=== PATIENT | female | born 1990 | race Caucasian/White ===

== ENCOUNTER 2020-01-10 13:11 | Outpatient (REF) | payer MEDICAID, SELFPAY | END 2020-01-10 13:12 | disposition home or self-care (01) | LOC: HO.LAB 13:11 | PROVIDERS: Visit Provider Internal Medicine | DX: Z20.828 Contact with and (suspected) exposure to other viral communicable diseases (principal) | CPT/HCPCS: C9803; U0003 ==

== ENCOUNTER 2020-04-27 17:31 | Emergency (ER) | payer MEDICAID, SELFPAY ==
[2020-04-27 17:51] VITALS: BP 103/71; PULSE 86; RESP 16; TEMP 36.8; O2SAT 97; BMI 28.3
--- NOTE | 2020-04-27 20:02 | ED_ITS ---
HPI - Abdominal Pain General Chief Complaint: Abdominal Pain Stated Complaint: abdominal pain Time Seen by Provider: 04/27/20 20:01 Source: patient Mode of arrival: ambulatory Limitations: no limitations History of Present Illness HPI narrative: Patient with chronic epigastric pain for more than 1 year has seen PCP plan to see government contracts manager comes here as pain is still there patient supposed to take Prilosec which she is not taking has nausea in the morning pain is burning sensation no vomiting or diarrhea no fever no chills also patient family son and boyfriend have cold symptoms for last few days MD elicited complaint: abdominal pain Pertinent past history: gastritis Onset (ago): month(s) Pain Consistency: intermittent Location: epigastric Severity: mild Quality: burning Radiation: epigastric Migration to: no migration Exacerbating factors: eating Relieving factors: nothing Associated symptoms: nausea Related Data Allergies Allergy/AdvReac Type Severity Reaction Status Date / Time dog dander [DOG] Allergy Intermediate SNEEZING Unverified 10/27/19 15:50 AND PUFFYNESS Review of Systems Review of Systems Yes all other systems are reviewed and are negative Physical Exam Vital Signs: Vital Signs: Last Vital Signs Temp 98.3 F 04/27/20 17:51 Pulse 85 04/27/20 20:33 Resp 18 04/27/20 20:33 BP 119/47 L 04/27/20 20:33 Pulse Ox 97 04/27/20 20:33 Body Mass Index 28.3 Appearance: Alert. Oriented X3. No acute distress. Eyes: Pupils equal, round and reactive to light. ENT: Pharynx normal. Neck: Normal inspection. Neck supple. CVS: Normal heart rate and rhythm. Pulses normal. Respiratory: No respiratory distress. Breath sounds normal. Abdomen: Soft , mild tenderness in the epigastric area, no rebound tenderness or guarding , Bowel sounds are present, no mass palpable, no CVA tenderness Skin: Skin warm and dry. Normal skin color. Normal skin turgor. Extremities: No lower extremity edema. Neuro: Oriented X 3. No motor deficit. No sensory deficit. MDM - Abdominal Pain MDM Narrative Medical decision making narrative: Patient with chronic gastritis came positive with COVID-19 as other family members also sick will discharge patient home on Prilosec sucralfate and supportive treatment for COVID-19 Lab Data Attestation: I reviewed the patient's lab results. Labs: Lab Results 04/27/20 Range/Units 20:38 COVID-19 (GUILLAUME) Positive A (Negative) COVID-19 Clin Com See Note PMFSH Past Medical History Medical History (Updated 04/27/20 @ 20:35 by Jan Renteria MD) Chronic gastritis Social History Social History Advance Directives: No Advance Directives Information Provided: No
[2020-04-27 20:33] VITALS: BP 119/47; PULSE 85; RESP 18; O2SAT 97
[2020-04-27] MEDS: Omeprazole 40 MG CAPSULE.DR PO (20:52)
[2020-04-27] MEDS: Magnesium Hydrox/Alum Hydrox 30 ML ORAL.SUSP PO (20:52)
[2020-04-27 21:17] LABS: COVID-19 Test Positive (Negative)
== END 2020-04-27 22:00 | disposition home or self-care (01) ==
PROVIDERS: Emergency Provider Internal Medicine; PCP Internal Medicine
DX: U07.1 COVID-19 (principal); K29.50 Unspecified chronic gastritis without bleeding; Z91.14 Patient's other noncompliance with medication regimen
CPT/HCPCS: 36415; 87635; 99283

== ENCOUNTER 2020-07-23 16:28 | Outpatient (REF) | payer MEDICAID, SELFPAY ==
[2020-07-23 16:53] LABS: MANUAL DIFF FLAG NO
[2020-07-23 17:00] LABS: Basophils Percent Auto 0.3 % (0-2); Eosinophils Absolute Auto 0.2 X10*3/uL (0.0-0.4); Eosinophils Percent Auto 1.8 % (0-4); Hematocrit 38.4 % (37-47); Hemoglobin 12.9 g/dl (12.0-16.0); Imm Gran Abs Auto 0.03 X10*3/uL (0.00-0.03); Imm Gran Pct Auto 0.3 % (0.0-0.4); Lymphocytes Absolute Auto 1.7 X10*3/uL (1.2-4.9); Lymphocytes Percent Auto 18.4 % (20-40); Mean Corpuscular HGB Conc 33.6 g/dl (31.0-35.0); Mean Corpuscular Hemoglobin 31.8 pg (27.0-33.0); Mean Corpuscular Volume 94.6 fL (80-98); Mean Platelet Volume 10.6 fL (9.4-12.3); Monocytes Absolute Auto 0.6 X10*3/uL (0.1-1.2); Monocytes Percent Auto 6.2 % (2-11); Neutrophils Absolute Auto 6.9 X10*3/uL (2.0-8.3); Platelet Count 207 X10*3/uL (160-400); Red Blood Count 4.06 X10*6/uL (4.20-5.50); Red Cell Distribution Width 12.2 % (11.0-16.0); White Blood Count 9.5 X10*3/uL (4.8-10.8)
[2020-07-23 17:25] LABS: Alanine Aminotransferase 17 U/L (0-31); Albumin Level 4.6 g/dL (3.5-5.0); Alkaline Phosphatase 57 U/L (39-117); Anion Gap 14 (12-20); Aspartate Amino Transferase 20 U/L (5-31); Blood Urea Nitrogen 13 mg/dL (9-16); Calcium 9.4 mg/dL (8.4-10.2); Carbon Dioxide 23 mmol/L (22-29); Chloride 106 mmol/L (96-108); Estimated Glomerular Filt Rate > 60; Glucose Random 87 mg/dL (60-115); Sodium 139 mmol/L (135-145)
[2020-07-23 17:46] LABS: TSH reflex Free T4 1.12 uIU/mL (0.32-4.0)
[2020-07-23 17:51] LABS: Vitamin B12 287 pg/mL (200-900)
[2020-07-25 23:42] LABS: Zinc 58 mcg/dL (60-130)
== END 2020-07-23 16:29 | disposition home or self-care (01) ==
LOC: HO.LAB 16:28
PROVIDERS: PCP Internal Medicine; Visit Provider Internal Medicine
DX: F22 Delusional disorders (principal); F43.0 Acute stress reaction; L65.0 Telogen effluvium; R21 Rash and other nonspecific skin eruption; R63.4 Abnormal weight loss
CPT/HCPCS: 36415; 80053; 82607; 84443; 84630; 85025

== ENCOUNTER 2020-08-02 11:14 | Outpatient (REF) | payer OTHER, SELFPAY ==
[2020-08-02 14:02] LABS: Glucose Urine UA NEG (NEG); Leukocyte Esterase Urine NEG (NEG); Nitrite Urine NEG (NEG); Specific Gravity - Urine 1.025 (1.005-1.025); Urine Blood NEG (NEG); Urine Ketones NEG (NEG); Urine Protein NEG (NEG-TRACE)
[2020-08-02 14:06] LABS: Appearance Urine CLEAR; Color Urine YELLOW
[2020-08-02 14:26] LABS: Monotest Negative (Negative)
[2020-08-02 14:41] LABS: Amylase 64 U/L (28-100); C Reactive Protein 0.08 mg/dL (< or = 0.50); Lipase 33 U/L (8-78)
[2020-08-03 07:48] LABS: Syphilis Screen Nonreactive (Nonreactive)
[2020-08-03 08:08] LABS: HBS Num1 15.54 mIU/mL (0-7.99); HIV AB/AG Nonreactive (Nonreactive); HIV Num 1 0.08 S/CO (0.00-0.99); ~Hepatitis B Surface Antibody REACTIVE (Nonreactive)
[2020-08-03 08:51] LABS: HBc Num1 0.08 S/CO (0.00-0.79); HBsAGNum1 0.22 S/CO (0.00-0.99); Hepatitis B Core Antibody Nonreactive (Nonreactive); Hepatitis B Surface Antigen Negative (Negative); ~HepC Num1 0.08 S/CO (0.00-0.79); ~Hepatitis C Antibody Nonreactive (Nonreactive)
[2020-08-03 09:06] LABS: Hepatitis A Antibody IgM 0.12 Index (0-0.79); ~Hepatitis A Antibody IgM Nonreactive (Nonreactive)
[2020-08-03 14:21] LABS: H Pylori Breath Test NOT DETECTED (NOT DETECTED)
== END 2020-08-02 11:15 | disposition home or self-care (01) ==
LOC: HO.LAB 11:14
PROVIDERS: Visit Provider Nurse Practitioner
DX: Z01.84 Encounter for antibody response examination (principal); Z11.4 Encounter for screening for human immunodeficiency virus [HIV]; Z11.59 Encounter for screening for other viral diseases; R10.13 Epigastric pain; K58.2 Mixed irritable bowel syndrome; R21 Rash and other nonspecific skin eruption; R63.4 Abnormal weight loss; R35.0 Frequency of micturition
CPT/HCPCS: 36415; 81003; 82150; 83013; 83690; 86140; 86308; 86704; 86706; 86709; 86780; 86803; 87340; 87389; 99202

== ENCOUNTER 2020-09-03 08:43 | Outpatient (REF) | payer OTHER, SELFPAY ==
--- NOTE | ~2020-09-03 | US_ITS ---
EXAMINATION: US ABDOMEN LIMITED CLINICAL INFORMATION: Abnormal weight loss. COMPARISON: Ultrasound abdomen 03/08/2019. CT abdomen pelvis 09/08/2011. TECHNIQUE: Real-time imaging of the right upper quadrant abdominal viscera. FINDINGS: PANCREAS: Normal. LIVER: The liver is normal in size. The liver contour is normal. The liver echotexture is slightly increased. No focal hepatic lesion. There is no intrahepatic biliary duct dilatation seen. GALLBLADDER: Normal The gallbladder is physiologically distended without evidence of stones, sludge, polyps, wall thickening or pericholecystic fluid. COMMON BILE DUCT: Normal in caliber measuring 0.5 cm in diameter. RIGHT KIDNEY: Normal. No hydronephrosis. No renal calculi or focal parenchymal lesions. The kidney measures 11.3 cm in maximum dimension. FREE FLUID: None. US/US abdomen limited IMPRESSION: Slightly echogenic liver otherwise unremarkable exam
== END 2020-09-03 08:44 | disposition home or self-care (01) ==
LOC: HO.US 08:43
PROVIDERS: Visit Provider Nurse Practitioner
DX: K58.2 Mixed irritable bowel syndrome (principal); R10.13 Epigastric pain; R21 Rash and other nonspecific skin eruption; R63.4 Abnormal weight loss
CPT/HCPCS: 76705

== ENCOUNTER 2020-11-28 15:49 | Outpatient (REF) | payer OTHER, SELFPAY | END 2020-11-28 15:50 | disposition home or self-care (01) | LOC: HO.LAB 15:49 | PROVIDERS: Visit Provider Internal Medicine | DX: Z20.822 Contact with and (suspected) exposure to COVID-19 (principal) | CPT/HCPCS: C9803; U0003; U0005 ==

== ENCOUNTER 2020-12-06 14:57 | Outpatient (REF) | payer OTHER, SELFPAY | END 2020-12-06 14:58 | disposition home or self-care (01) | LOC: HO.LAB 14:57 | PROVIDERS: Visit Provider Internal Medicine | DX: Z20.822 Contact with and (suspected) exposure to COVID-19 (principal) | CPT/HCPCS: C9803; U0003; U0005 ==

== ENCOUNTER → 2021-02-28 13:08 | Outpatient (BNVA) | payer OTHER, SELFPAY | PROVIDERS: Visit Provider Nurse Practitioner | DX: R10.13 Epigastric pain (principal); Z34.90 Encounter for supervision of normal pregnancy, unspecified, unspecified trimester | CPT/HCPCS: 99212 ==